=== PATIENT | female | born 1990 ===

== ENCOUNTER 2017-01-26 18:19 | Emergency (ER) | payer OTHER | END 2017-01-26 20:35 | disposition home or self-care (01) | LOC: C.ER 18:19 | DX: T81.4XXD Infection following a procedure, subsequent encounter (principal); L02.211 Cutaneous abscess of abdominal wall; Y84.8 Other medical procedures as the cause of abnormal reaction of the patient, or of later complication, without mention of misadventure at the time of the procedure ==